=== PATIENT | male | born 2000 | race African-American/Black ===

== ENCOUNTER 2025-06-16 03:10 | Emergency (ER) | payer SELFPAY ==
[~2025-06-16] VITALS: Ht 172.7 cm; Wt 90.0 kg
[2025-06-16 03:14] VITALS: O2SAT 100
[2025-06-16] MEDS ORDERED: SODIUM CHLORIDE 0.9% 1,000 ML IV ONE (03:45)
[2025-06-16 04:03] LABS: BASOPHILS % 0.8 % (0.0-2.0); EOSINOPHILS % 0.3 % (0.0-5.0); HEMATOCRIT. 43.2 % (42.0-52.0); HEMOGLOBIN. 14.4 g/dL (14.0-18.0); LYMPHOCYTES % 11.5 % (20.0-50.0); MEAN PLATELET VOLUME 8.0 fl (7.4-10.4); MONOCYTES % 5.7 % (2.0-8.0); NEUTROPHILS % 81.7 % (40.0-76.0); PLATELET 352 x1000/uL (130-400); RED BLOOD CELL COUNT 5.46 mill/uL (4.7-6.1); RED CELL DISTRIBUTION WIDTH 14.1 % (11.6-14.6)
[2025-06-16 04:15] LABS: CREATININE 1.0 mg/dL (0.6-1.3); UREA NITROGEN BLOOD 20 mg/dL (9-23)
[2025-06-16] MEDS ORDERED: ACET-2708 MT (05:27)
[2025-06-16] MEDS ORDERED: ONDA4TAB50 MT (05:27)
[2025-06-16 05:28] VITALS: TEMP 36.6; O2SAT 99
[2025-06-16 05:37] VITALS: BP 169/95; PULSE 94; RESP 16
[2025-06-16] MEDS: METOCLOPRAMIDE HCL 10MG/2ML VIAL IV ONE (05:37)
[2025-06-16] MEDS: KETOROLAC 15MG/ML VIAL IV ONE (05:37)
[2025-06-16] MEDS ORDERED: KETOROLAC 15MG/ML VIAL IV NR (05:45)
[2025-06-16] MEDS ORDERED: METOCLOPRAMIDE HCL 10MG/2ML VIAL IV NR (05:45)
== END 2025-06-16 06:12 | disposition home or self-care (01) ==
LOC: ER 03:10
DX: R10.31 Right lower quadrant pain (principal); R10.32 Left lower quadrant pain; R11.2 Nausea with vomiting, unspecified; F12.90 Cannabis use, unspecified, uncomplicated; R51.9 Headache, unspecified
CPT/HCPCS: 80048; 80320; 85025; 36415; 74176; 96374; 96375; 99285; J1885; J2765; J7030; Z7610; G0480

== ENCOUNTER 2025-06-16 06:14 | Emergency (ER) | payer SELFPAY ==
[2025-06-16 05:37] VITALS: RESP 16
[~2025-06-16 06:14] MED LIST: ACET-2708 MT; ONDA4TAB50 MT
[2025-06-16 06:42] VITALS: BP 118/79; PULSE 82; TEMP 36.7; O2SAT 98
== END 2025-06-16 07:13 | disposition left against medical advice (07) ==
LOC: ER 06:14
DX: K59.00 Constipation, unspecified (principal); Z53.21 Procedure and treatment not carried out due to patient leaving prior to being seen by health care provider